=== PATIENT | female | born 1995 ===

== ENCOUNTER 2016-07-12 07:03 | Day surgery (SDC) | payer BC ==
[2016-07-05 10:05] LABS: HEMATOCRIT 42.4 % (36.0-47.0); HEMOGLOBIN 14.4 g/dL (12.0-15.5); HGB HCT DIFFERENCE 0.8; MEAN CORPUSCULAR HGB CONC 33.9 g/dL (32.0-36.0); MEAN CORPUSCULAR VOLUME 91 fl (80-97); RED BLOOD COUNT 4.64 10^6/uL (3.72-5.28); RED CELL DISTRIBUTION WIDTH 12.1 % (11.5-14.0)
[2016-07-05 10:26] LABS: ALANINE AMINOTRANSFERASE 35 U/L (9-52); ALBUMIN 4.3 g/dL (3.5-5.0); ALKALINE PHOSPHATASE 120 U/L (38-126); AMYLASE 69 U/L (30-110); ANION GAP 14 (5-19); ASPARTATE AMINO TRANSFERASE 20 U/L (14-36); BILIRUBIN,DIRECT 0.2 mg/dL (0.0-0.4); BILIRUBIN,TOTAL 0.5 mg/dL (0.2-1.3); BLOOD UREA NITROGEN 11 mg/dL (7-20); CALCIUM 9.4 mg/dL (8.4-10.2); CARBON DIOXIDE 28 mmol/L (22-30); CHLORIDE 100 mmol/L (98-107); GLUCOSE 140 mg/dL (75-110); POTASSIUM 3.9 mmol/L (3.6-5.0); SODIUM 142.4 mmol/L (137-145); TOTAL PROTEIN 7.4 g/dL (6.3-8.2)
[~2016-07-12 07:03] MED LIST: ACETAMINOPHEN 325 MG TABLET PO PRN; CEFAZOLIN 1 GM/D5W RTU 1 GM/50 ML RTUPB IV PRN; LACTATED RINGERS 1000 ML IV PRN; LIDOCAINE 0.5% INJ-PF (5 MG/ML) 50 ML SDV SUBCUT PRN
[2016-07-12] MEDS ORDERED: SCOPOLAMINE HYDROBROMIDE 1.5 MG PATCH.TD72 ONE (07:48)
[2016-07-12] MEDS ORDERED: MIDAZOLAM 2 MG/2 ML INJ ONE ×2 (07:49→07:57)
[2016-07-12] MEDS ORDERED: FAMOTIDINE INJ/PF 20 MG/2 ML SDV IV ONE (07:49)
[2016-07-12] MEDS ORDERED: HYDROMORPHONE HCL INJ/PF 2 MG/ML AMPULE ONE (07:57)
[2016-07-12] MEDS ORDERED: ONDANSETRON HCL INJ/PF 4 MG/2 ML SDV ONE (07:57)
[2016-07-12] MEDS ORDERED: DEXAMETHASONE SOD PHOSPHATE INJ 4 MG/1 ML VIAL ONE (07:57)
[2016-07-12] MEDS ORDERED: PROPOFOL INJ 200 MG/20 ML VIAL IV ONE (07:57)
[2016-07-12] MEDS ORDERED: LIDOCAINE 1% INJ-PF (10 MG/ML) 30 ML SDV ONE (08:12)
[2016-07-12] MEDS ORDERED: PROMETHAZINE HCL INJ 25 MG/1 ML VIAL IV PRN (09:10)
[2016-07-12] MEDS ORDERED: DIPHENHYDRAMINE HCL 50 MG/ML VIAL IV PRN (09:10)
[2016-07-12] MEDS ORDERED: FENTANYL CITRATE INJ/PF 100 MCG/2 ML AMPUL IV PRN ×3 (09:10)
[2016-07-12] MEDS ORDERED: MICROFIBRILLAR COLLAGEN 1 GM PACK ONE (09:13)
[2016-07-12] MEDS ORDERED: MORPHINE SULFATE 10 MG/ML INJ IV PRN (09:47)
[2016-07-12] MEDS ORDERED: OXYCODONE-ACETAMINOPHEN 5-325 MG TABLET PO PRN (09:47)
[2016-07-12] MEDS ORDERED: RINGERS SOLUTION,LACTATED 1,000 ML IV PRN (09:47)
[2016-07-12] MEDS ORDERED: ONDANSETRON HCL INJ/PF 4 MG/2 ML SDV IV PRN (09:47)
--- NOTE | 2016-07-12 09:55 | Operative Report ---
Operative Report DATE OF SURGERY: 07/12/16 PREOPERATIVE DIAGNOSIS: 1. 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 2. Complex cyst left breast, 900 position, subareolar POSTOPERATIVE DIAGNOSIS: 1. 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 2. Small fibroadenoma 9 o'clock position left breast subareolar OPERATION: 1. Focused ultrasound left breast. 2. Open excisional biopsy of left breast small fibroadenoma 9 o'clock position subareolar. 3. Open excision large left breast fibroadenoma, 4 o'clock position SURGEON: RONNI GAIVN ANESTHESIA: GA TISSUE REMOVED OR ALTERED: 2 left breast masses labeled accordingly COMPLICATIONS: None ESTIMATED BLOOD LOSS: 5 cc INTRAOPERATIVE FINDINGS: See below PROCEDURE: The patient was seen in the preop holding area with a left breast was marked. She was then taken to the operating room where general anesthesia was induced via L and a. Left breast was exposed. It was prepped and draped in sterile fashion. Surgical plan surgical timeout was conducted The patient is rotated to the right side left side up. We approached the subareolar 9 o'clock position left breast mass first. Focused ultrasound confirmed the relatively superficial mass approximately 2 cm in diameter 9 o' clock position midway between the nipple and the areola border. I anesthetized the areole or border from the 8:00 to 10 o'clock position with 1% lidocaine plain. Approximately 2-1/2 cm long incision was made along the areole or border. Using a combination of sharp and electrocautery dissection as well as ultrasound as a guide, we elevated the lateral aspect of the areola complex, then cut right down onto the mass which turned out to be a small fibroadenoma. The mass was resected in its entirety using gentle electrocautery dissection. Small blood vessels were cauterized as encountered. The specimen was labeled small left breast fibroadenoma, 9 o'clock position sent to pathology for permanent analysis. We placed the patient in extreme right side down left side up position, and the inferior lateral quadrant was scanned with a variable frequency linear transducer. The findings were significant for a large fibroadenoma previously biopsied and confirmed to be in the 4 o'clock position. Skin was needed 1% lidocaine plain. Approximately 1/2-5 cm incision, curvilinear, was made on the deep inferior lateral aspect of the left breast approximately 12 cm from the nipple. Using combination of electrocautery and blunt dissection, the deep subcutaneous tissue was divided and we encountered the well-circumscribed mass. 2-0 Vicryl sutures were placed in the mass to assist with retraction. The mass was dissected out from its surrounding parenchyma with electrocautery. The specimen was passed off to pathology for permanent analysis, and labeled fibroadenoma left breast 4 o'clock position. We checked both operative wound for bleeding there was none. Avitene was placed in the recesses of the wound. And wounds closed with 3-0 Vicryl and 4-0 Ethilon suture for the large 4 o'clock position incision. Benzoin Steri-Strips applied. Patient tolerated procedure well, extubated and taken to recovery in stable condition.
--- NOTE | 2016-07-12 09:58 | PDOC DISCHARGE SUMMARY ---
Discharge Summary (SDC) - Discharge Final Diagnosis: Masses left breast consistent with fibroadenomas 2 Date of Surgery: 07/12/16 Discharge Date: 07/12/16 Condition: Good Treatment or Instructions: Leave Steri-Strips on breast. Use supportive bra such as sports bra. Take Tylenol Motrin, or if pain unrelieved, Toradol which is been prescribed Patient may shower in 48 hours. In the event of pain, fever, drainage, please call also surgical clinic with provided number for [facility] and asked to speak to the surgeon speech correction assistant. Prescriptions: Ketorolac Tromethamine [Toradol 10 mg Tablet] 10 mg PO Q6HP PRN #0 tablet PRN Reason: Discharge Diet: As Tolerated Discharge Activity: Activity As Tolerated Home Care Assistance: None Needed Report the Following to Your Physician Immediately: Shortness of Breath, Increase in Pain, Fever over 101 Degrees
[2016-07-12 12:20] VITALS: BP 116/66
== END 2016-07-12 12:21 | disposition home or self-care (01) ==
LOC: OROUT 07:03
PROVIDERS: ATTEND Surgery
PROC: 0HBU0ZX Excision of Left Breast, Open Approach, Diagnostic (ICD-10-PCS; principal; 2016-07-12 08:45)
DX: D24.2 Benign neoplasm of left breast (principal)
CPT/HCPCS: 36415; 82150; 85027; 81025; 80076; 80048; 88305 ×2; 88342; 19120; J2250; J0690; J1100; J3490 ×2; J1170; J2405; J2704; S0028; 400